=== PATIENT | female | born 1960 | race Two or more races ===

== ENCOUNTER 2016-09-25 07:41 | Emergency (ER) | payer BC ==
[~2016-09-25] VITALS: Ht 160 cm; Wt 59.0 kg
[2016-09-25 08:55] LABS: KETONES,URINE NEGATIVE (NEGATIVE); LEUKOCYTE ESTERASE ,URINE NEGATIVE (NEGATIVE); PH,URINE 5.5 (5.0-8.0)
[2016-09-25 09:04] LABS: ADD UA MICROSCOPIC YES
[2016-09-25 09:07] LABS: ADD URINE CULTURE NO; WBC,URINE 0-2 /HPF (0-3)
[2016-09-25 10:01] VITALS: BP 125/68
== END 2016-09-25 10:02 | disposition home or self-care (01) ==
LOC: ER 07:43
DX: R10.30 Lower abdominal pain, unspecified (principal); G89.29 Other chronic pain; M54.9 Dorsalgia, unspecified
CPT/HCPCS: 81001; 99283; A4606; Z7610; 81000-TC

== ENCOUNTER 2017-03-06 21:16 | Emergency (ER) | payer BC ==
[~2017-03-06] VITALS: Ht 165.1 cm; Wt 63.5 kg
[2017-03-06 21:20] VITALS: BP 147/65
== END 2017-03-06 21:37 | disposition home or self-care (01) ==
LOC: ER 21:21
DX: M79.642 Pain in left hand (principal)
CPT/HCPCS: 99282; A4606; Z7610

== ENCOUNTER 2017-08-28 07:13 | Emergency (ER) | payer BC ==
[~2017-08-28] VITALS: Ht 160 cm; Wt 63.5 kg
--- NOTE | 2017-08-28 07:20 | NUR ---
Patient to ed c/o epigastric pain on/off, 02/18 at this time-- x 1 week. Patient denies nausea and vomitting. Afebrile. vss
--- NOTE | 2017-08-28 07:34 | NUR ---
Dr. Boyer at bedside.
[2017-08-28] MEDS ORDERED: FAMOTIDINE (20 MG) 20 MG TABLET ONE (07:43)
[2017-08-28] MEDS ORDERED: MAG HYDROX/AL HYDROX/SIMETH 30 ML UDC ONE (07:43)
[2017-08-28] MEDS ORDERED: MAG HYDROX/AL HYDROX/SIMETH 30 ML UDC PO ONE (08:00)
[2017-08-28] MEDS ORDERED: FAMOTIDINE (20 MG) 20 MG TABLET PO ONE (08:00)
[2017-08-28 08:11] LABS: BASOPHILS # (AUTO) 0.1 /CMM (0.0-0.2); BASOPHILS % (AUTO) 1.1 % (0.0-2.0); EOSINOPHILS # (AUTO) 0.1 /CMM (0.0-0.7); EOSINOPHILS % (AUTO) 1.1 % (0.0-6.0); HEMATOCRIT 39 % (33-45); HEMOGLOBIN 13.5 g/dL (11.5-14.8); LYMPHOCYTES # (AUTO) 1.3 /CMM (0.8-4.8); LYMPHOCYTES % (AUTO) 27.1 % (20.0-44.0); MEAN CORPUSCULAR HEMOGLOBIN 29 PG (26.0-33.0); MEAN CORPUSCULAR HGB CONC 34 g/dl (31.0-36.0); MEAN CORPUSCULAR VOLUME 85 fL (82-100); MONOCYTES # (AUTO) 0.2 /CMM (0.1-1.30); MONOCYTES % (AUTO) 3.8 % (2.0-12.0); NEUTROPHILS # (AUTO) 3.3 /CMM (1.8-8.9); NEUTROPHILS % (AUTO) 66.9 % (43.0-81.0); PLATELET COUNT (AUTO) 272 /CMM (150-450); RDW COEFFICIENT OF VARIATION 13.4 (11.5-15.0); RED BLOOD CELL COUNT(AUTO) 4.63 MIL/uL (4.0-5.2); WHITE BLOOD COUNT (AUTO) 4.9 K/uL (4.3-11.0)
--- NOTE | 2017-08-28 08:14 | NUR ---
[facility] AT [facility]
[2017-08-28 08:22] LABS: CALCIUM, SERUM 9.2 mg/dL (8.5-10.1); CARBON DIOXIDE 32 mmol/L (21-32); CHLORIDE 104 mmol/L (98-107); CREATININE 0.7 mg/dL (0.6-1.3); GLUCOSE 130 mg/dL (74-106); POTASSIUM 4.1 mmol/L (3.5-5.1); SODIUM SERUM 144 mmol/L (136-145); UREA NITROGEN, BLOOD 10 mg/dL (7-18)
[2017-08-28 08:28] LABS: TROPONIN I < 0.017 ng/mL (0.00-0.056)
[2017-08-28 08:29] LABS: ALANINE AMINOTRANSFERASE 22 U/L (12-78); ALKALINE PHOSPHATASE 70 U/L (46-116); ASPARTATE AMINOTRANSFERASE 18 U/L (15-37); BILIRUBIN,DIRECT 0.1 mg/dL (0.0-0.2); BILIRUBIN,TOTAL 0.5 mg/dL (0.2-1.0); LIPASE 109 U/L (73-393)
[2017-08-28 08:45] VITALS: BP 120/80
--- NOTE | 2017-08-28 08:45 | NUR ---
Patient discharged to home in stable condition. Written and verbal after care instructions given. Patient verbalizes understanding of instruction.
== END 2017-08-28 08:46 | disposition home or self-care (01) ==
LOC: ER 07:15
DX: R10.13 Epigastric pain (principal); G89.29 Other chronic pain
CPT/HCPCS: 36415; 71045; 80048; 80076; 83690; 84484; 85025; 93005; 99285; A4606; Z7610

== ENCOUNTER 2018-02-02 15:14 | Emergency (ER) | payer BC, OTHER ==
[~2018-02-02] VITALS: Ht 160 cm; Wt 63.5 kg
[2018-02-02 15:14] VITALS: BP 126/75
== END 2018-02-02 17:36 | disposition home or self-care (01) ==
LOC: ER 15:17
DX: J40 Bronchitis, not specified as acute or chronic (principal); M54.6 Pain in thoracic spine; G89.29 Other chronic pain
CPT/HCPCS: 71046; 99284; A4606; Z7610

== ENCOUNTER 2018-05-23 13:22 | Emergency (ER) | payer BC ==
[~2018-05-23] VITALS: Ht 160 cm; Wt 63.5 kg
[2018-05-23 13:22] VITALS: BP 123/82
--- NOTE | 2018-05-23 15:42 | NUR ---
CALLED TO ROOM IN,NO ANSWER
--- NOTE | 2018-05-23 19:22 | NUR ---
CALLED PT NAME IN WR X 3. NO ONE RESPONSED. PER ADMITTING PT LEFT.
== END 2018-05-23 19:23 | disposition left against medical advice (07) ==
LOC: ER 13:24
DX: Z53.21 Procedure and treatment not carried out due to patient leaving prior to being seen by health care provider (principal)
CPT/HCPCS: A4606; Z7610

== ENCOUNTER 2018-05-24 09:54 | Emergency (ER) | payer BC ==
[~2018-05-24] VITALS: Ht 160 cm; Wt 63.5 kg
[2018-05-24 09:54] VITALS: BP 126/76
== END 2018-05-24 10:22 | disposition home or self-care (01) ==
LOC: ER 09:59
DX: H61.22 Impacted cerumen, left ear (principal); G89.29 Other chronic pain; M54.9 Dorsalgia, unspecified; Z78.0 Asymptomatic menopausal state
CPT/HCPCS: A4606; Z7610

== ENCOUNTER 2018-09-21 10:33 | Emergency (ER) | payer BC ==
[~2018-09-21] VITALS: Ht 160 cm; Wt 64.9 kg
[2018-09-21 10:40] VITALS: BP 118/82
[2018-09-21] MEDS ORDERED: IBUPROFEN 400 MG TABLET ONE (10:52)
[2018-09-21] MEDS ORDERED: IBUPROFEN 400 MG TABLET PO ONE (11:00)
== END 2018-09-21 10:59 | disposition home or self-care (01) ==
LOC: ER 10:33
DX: S30.0XXA Contusion of lower back and pelvis, initial encounter (principal); M76.01 Gluteal tendinitis, right hip; F41.9 Anxiety disorder, unspecified; G89.29 Other chronic pain; X58.XXXA Exposure to other specified factors, initial encounter; Y93.89 Activity, other specified; Y92.89 Other specified places as the place of occurrence of the external cause; Y99.8 Other external cause status
CPT/HCPCS: 99282; A4606

== ENCOUNTER 2018-11-27 17:05 | Emergency (ER) | payer BC ==
[~2018-11-27] VITALS: Ht 160 cm; Wt 65.8 kg
[2018-11-27 17:15] VITALS: BP 133/76
[2018-11-27 18:16] LABS: APPEARANCE,URINE Clear (CLEAR); BILIRUBIN,URINE Negative (NEGATIVE); BLOOD, URINE Trace-intact Ery/uL (NEGATIVE); COLOR,URINE Yellow (YELLOW); KETONES,URINE Negative (NEGATIVE); LEUKOCYTE ESTERASE ,URINE Negative (NEGATIVE); NITRITE, URINE Negative (NEGATIVE); PH,URINE 6.5 (5.0-8.0); PROTEIN,URINE Negative (NEGATIVE); UGLUCOSE Negative (NEGATIVE); UROBILINOGEN,URINE 0.2 EU/dL (0.2)
[2018-11-27 18:24] LABS: BACTERIA,URINE Rare /HPF (None Seen); RBC,URINE 0-2 /HPF (0-2); SQUAMOUS EPITHELIAL CELL,UR Few /HPF (None Seen); WBC,URINE NONE SEEN /HPF (0-3)
== END 2018-11-27 19:16 | disposition home or self-care (01) ==
LOC: ER 17:07
DX: M54.5 Low back pain (principal); R10.30 Lower abdominal pain, unspecified; M62.838 Other muscle spasm; G89.29 Other chronic pain; M54.9 Dorsalgia, unspecified; F10.10 Alcohol abuse, uncomplicated; Y90.9 Presence of alcohol in blood, level not specified; Z87.442 Personal history of urinary calculi
CPT/HCPCS: 81000-TC

== ENCOUNTER 2019-04-20 16:28 | Emergency (ER) | payer BC ==
[~2019-04-20] VITALS: Ht 160 cm; Wt 64.9 kg
[2019-04-20 16:49] VITALS: BP 131/84
== END 2019-04-20 17:47 | disposition home or self-care (01) ==
LOC: ER 16:31
DX: B35.4 Tinea corporis (principal); G89.29 Other chronic pain

== ENCOUNTER 2019-05-19 11:06 | Emergency (ER) | payer BC ==
[~2019-05-19] VITALS: Ht 165.1 cm; Wt 63.5 kg
[2019-05-19 12:18] LABS: BILIRUBIN,URINE Negative (NEGATIVE); BLOOD, URINE Trace-lysed Ery/uL (NEGATIVE); COLOR,URINE Yellow (YELLOW); KETONES,URINE Negative (NEGATIVE); LEUKOCYTE ESTERASE ,URINE Negative (NEGATIVE); NITRITE, URINE Negative (NEGATIVE); PROTEIN,URINE Negative (NEGATIVE); UGLUCOSE Negative (NEGATIVE); UROBILINOGEN,URINE 0.2 EU/dL (0.2)
[2019-05-19 12:21] LABS: APPEARANCE,URINE SLIGHTLY HAZY (CLEAR)
[2019-05-19] MEDS ORDERED: ACETAMINOPHEN ES 500 MG TABLET PO ONE (12:30)
--- NOTE | 2019-05-19 12:35 | NUR ---
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 CALLED ER/ [facility] AND INFORMED THEM ABOUT THE REASON FOR DELAY
[2019-05-19] MEDS ORDERED: ACETAMINOPHEN ES 500 MG TABLET ONE (12:38)
[2019-05-19 12:43] LABS: BACTERIA,URINE None seen /HPF (None Seen); SQUAMOUS EPITHELIAL CELL,UR Few /HPF (None Seen); WBC,URINE 0-3 /HPF (0-3)
[2019-05-19 12:46] LABS: BASOPHILS % (AUTO) 0.7 % (0.0-2.0); EOSINOPHILS % (AUTO) 0.8 % (0.0-6.0); HEMATOCRIT 41 % (33-45); LYMPHOCYTES # (AUTO) 1.2 /CMM (0.8-4.8); LYMPHOCYTES % (AUTO) 22.6 % (20.0-44.0); MEAN CORPUSCULAR HGB CONC 34 g/dl (31.0-36.0); MEAN CORPUSCULAR VOLUME 86 fL (82-100); MONOCYTES # (AUTO) 0.2 /CMM (0.1-1.30); MONOCYTES % (AUTO) 4.6 % (2.0-12.0); NEUTROPHILS # (AUTO) 3.7 /CMM (1.8-8.9); NEUTROPHILS % (AUTO) 71.3 % (43.0-81.0); PLATELET COUNT (AUTO) 281 /CMM (150-450); RED BLOOD CELL COUNT(AUTO) 4.78 MIL/uL (4.0-5.2); WHITE BLOOD COUNT (AUTO) 5.2 K/uL (4.3-11.0)
[2019-05-19 12:53] LABS: CALCIUM, SERUM 9.2 mg/dL (8.5-10.1); CREATININE 0.6 mg/dL (0.6-1.3)
[2019-05-19 13:08] LABS: ALBUMIN 4.1 g/dL (3.4-5.0); BILIRUBIN,DIRECT 0.1 mg/dL (0.0-0.2); BILIRUBIN,TOTAL 0.4 mg/dL (0.2-1.0); TOTAL PROTEIN, SERUM 8.1 g/dL (6.4-8.2)
[2019-05-19 13:53] VITALS: BP 134/67
--- NOTE | 2019-05-19 13:53 | NUR ---
Patient discharged to home in stable condition. Written and verbal after care instructions given. Patient verbalizes understanding of instruction.
== END 2019-05-19 13:53 | disposition home or self-care (01) ==
LOC: ER 11:10
DX: K59.00 Constipation, unspecified (principal); G89.29 Other chronic pain; M54.9 Dorsalgia, unspecified; F10.10 Alcohol abuse, uncomplicated; Y90.9 Presence of alcohol in blood, level not specified
CPT/HCPCS: 36415; 74018; 76856-TC; 80048-TC; 80076-TC; 81000-TC; 85025-TC

== ENCOUNTER 2021-01-18 18:41 | Emergency (ER) | payer BC ==
[~2021-01-18] VITALS: Ht 160 cm; Wt 64.4 kg
[2021-01-18] MEDS ORDERED: MECLIZINE HCL 25 MG TABLET ONE (19:08)
[2021-01-18] MEDS ORDERED: ONDANSETRON HCL/PF 4 MG/2 ML VIAL ONE (19:08)
[2021-01-18] MEDS: MECLIZINE HCL 12.5 MG TABLET PO ONE (19:17)
[2021-01-18] MEDS: ONDANSETRON HCL/PF - ER 4 MG/2 ML VIAL IV ONE (19:17)
--- NOTE | 2021-01-18 19:19 | NUR ---
BIBS W/ FROM HOME TO ER BED 6. AAOX4. NOT IN RESP DISTRESS. AMBULATORY. CAME IN FOR DIZZYNESS, [place], PALPITATION AND CHEST TIGHTNESS. PER PT, SHE STARTED FEELING DIZZY AROUND 1500. PT THEN STARTED TO FEEL NAUSEOUS, PALPITATION AND CHEST TIGHTNESS. WAS AT THE BEDSIDE FOR EVAL. ORDERSRECEIVED, NOTED AND CARRIED OUT. IV LINE ESTABLISHED ON L AC 20G, BLOOD DRAWN AND GIVEN TO PHLEB.
[2021-01-18 19:22] LABS: BASOPHILS % (AUTO) 0.6 % (0.0-2.0); EOSINOPHILS % (AUTO) 0.4 % (0.0-6.0); HEMATOCRIT 40 % (33-45); HEMOGLOBIN 13.6 g/dL (11.5-14.8); LYMPHOCYTES # (AUTO) 1.5 /CMM (0.8-4.8); LYMPHOCYTES % (AUTO) 18.4 % (20.0-44.0); MEAN CORPUSCULAR HGB CONC 34 g/dl (31.0-36.0); MEAN CORPUSCULAR VOLUME 86 fL (82-100); MONOCYTES # (AUTO) 0.2 /CMM (0.1-1.30); MONOCYTES % (AUTO) 2.9 % (2.0-12.0); NEUTROPHILS # (AUTO) 6.3 /CMM (1.8-8.9); NEUTROPHILS % (AUTO) 77.7 % (43.0-81.0); PLATELET COUNT (AUTO) 303 /CMM (150-450); RED BLOOD CELL COUNT(AUTO) 4.65 MIL/uL (4.0-5.2); WHITE BLOOD COUNT (AUTO) 8.1 K/uL (4.3-11.0)
[2021-01-18 19:23] LABS: CALCIUM, SERUM 9.7 mg/dL (8.5-10.1); CARBON DIOXIDE 29 mmol/L (21-32); CHLORIDE 103 mmol/L (98-107); CREATININE 0.8 mg/dL (0.6-1.3); GLUCOSE 104 mg/dL (74-106); POTASSIUM 4.1 mmol/L (3.5-5.1); SODIUM SERUM 140 mmol/L (136-145); UREA NITROGEN, BLOOD 11 mg/dL (7-18)
[2021-01-18] MEDS ORDERED: MECL-159 PO (20:52)
[2021-01-18] MEDS ORDERED: ONDA4TAB5 PO (20:52)
--- NOTE | 2021-01-18 21:33 | NUR ---
Patient discharged to home in stable condition. Written and verbal after care instructions given. Patient verbalizes understanding of instruction.IV removed. Catheter intact and site benign. Pressure and 4x4 applied to site. No bleeding noted. Pt ambulatory with a steady gait
[2021-01-18 21:36] VITALS: BP 124/70
== END 2021-01-18 21:37 | disposition home or self-care (01) ==
LOC: ER 18:44
DX: R42 Dizziness and giddiness (principal); R00.2 Palpitations; M54.5 Low back pain; G89.29 Other chronic pain; Z79.899 Other long term (current) drug therapy
CPT/HCPCS: 36415; 80048; 84484; 85025; 93005 ×2; 96374; 99284; J2405; J8597

== ENCOUNTER 2021-03-21 07:43 | Emergency (ER) | payer BC ==
[~2021-03-21] VITALS: Ht 160 cm; Wt 63.5 kg
[~2021-03-21 07:43] MED LIST: MECL-159 PO; ONDA4TAB5 PO
--- NOTE | 2021-03-21 08:05 | NUR ---
TO ER BED 1, C/O DIZZINESS X 2 DAYS WORST TODAY. ALSO C/O NAUSEA, VOMITING AND DIARRHEA, CHANGED TO GOWN, ATTACHED TO MONITOR, SALINE LOCK ESTABLISHED, BLOOD DRAWN.
[2021-03-21] MEDS ORDERED: MECLIZINE HCL 25 MG TABLET ONE (08:14)
[2021-03-21] MEDS ORDERED: ONDANSETRON HCL/PF 4 MG/2 ML VIAL ONE (08:14)
[2021-03-21] MEDS ORDERED: IV NS 0.9% 1,000 ML BAG IV ONE (08:30)
[2021-03-21] MEDS ORDERED: ONDANSETRON HCL/PF 4 MG/2 ML VIAL IVP ONE (08:30)
[2021-03-21] MEDS ORDERED: MECLIZINE HCL 12.5 MG TABLET PO ONE (08:30)
[2021-03-21 08:43] LABS: BASOPHILS % (AUTO) 0.7 % (0.0-2.0); EOSINOPHILS % (AUTO) 1.3 % (0.0-6.0); HEMATOCRIT 38 % (33-45); HEMOGLOBIN 12.7 g/dL (11.5-14.8); LYMPHOCYTES # (AUTO) 1.5 K/uL (0.8-4.8); LYMPHOCYTES % (AUTO) 26.1 % (20.0-44.0); MEAN CORPUSCULAR HGB CONC 34 g/dl (31.0-36.0); MEAN CORPUSCULAR VOLUME 86 fL (82-100); MONOCYTES # (AUTO) 0.3 K/uL (0.1-1.30); MONOCYTES % (AUTO) 5.5 % (2.0-12.0); NEUTROPHILS # (AUTO) 3.7 K/uL (1.8-8.9); NEUTROPHILS % (AUTO) 66.4 % (43.0-81.0); PLATELET COUNT (AUTO) 267 K/uL (150-450); RED BLOOD CELL COUNT(AUTO) 4.38 MIL/uL (4.0-5.2); WHITE BLOOD COUNT (AUTO) 5.6 K/uL (4.3-11.0)
[2021-03-21 08:58] LABS: ALANINE AMINOTRANSFERASE 17 U/L (12-78); ALBUMIN 3.9 g/dL (3.4-5.0); ALKALINE PHOSPHATASE 57 U/L (46-116); ASPARTATE AMINOTRANSFERASE 11 U/L (15-37); BILIRUBIN,DIRECT 0.1 mg/dL (0.0-0.2); BILIRUBIN,TOTAL 0.4 mg/dL (0.2-1.0); CARBON DIOXIDE 30 mmol/L (21-32); CHLORIDE 104 mmol/L (98-107); CREATININE 0.7 mg/dL (0.6-1.3); GLUCOSE 98 mg/dL (74-106); POTASSIUM 3.6 mmol/L (3.5-5.1); SODIUM SERUM 143 mmol/L (136-145); TOTAL PROTEIN, SERUM 7.5 g/dL (6.4-8.2); UREA NITROGEN, BLOOD 17 mg/dL (7-18)
--- NOTE | 2021-03-21 09:20 | NUR ---
URINE COLLECTED AND SENT TO LAB
[2021-03-21] MEDS ORDERED: MECL-159 PO (09:27)
[2021-03-21] MEDS ORDERED: ONDA4TAB5 PO (09:27)
[2021-03-21 09:37] LABS: BILIRUBIN,URINE NEGATIVE (NEGATIVE); COLOR,URINE YELLOW (YELLOW); LEUKOCYTE ESTERASE ,URINE TRACE (NEGATIVE); NITRITE, URINE NEGATIVE (NEGATIVE); PROTEIN,URINE NEGATIVE (NEGATIVE); UGLUCOSE NEGATIVE (NEGATIVE); UROBILINOGEN,URINE 0.2 EU/dL (0.2)
[2021-03-21 10:17] LABS: BACTERIA,URINE None seen /HPF (None Seen); SQUAMOUS EPITHELIAL CELL,UR 0-2 /HPF (None Seen); WBC,URINE 0-2 /HPF (0-3)
[2021-03-21 10:23] VITALS: BP 109/69
--- NOTE | 2021-03-21 10:34 | NUR ---
IV removed. Catheter intact and site benign. Pressure and 4x4 applied to site. No bleeding noted.Patient discharged to home in stable condition. Written and verbal after care instructions given. Patient verbalizes understanding of instruction.
== END 2021-03-21 10:35 | disposition home or self-care (01) ==
LOC: ER 07:46
DX: R42 Dizziness and giddiness (principal); R11.2 Nausea with vomiting, unspecified; G89.29 Other chronic pain
CPT/HCPCS: 36415; 70450; 71045; 80048; 80076; 81001; 84484; 85025; 93005; 96361; 96374; 99285; J2405; J7030; J8597

== ENCOUNTER 2021-11-20 17:53 | Emergency (ER) | payer BC ==
[~2021-11-20] VITALS: Ht 160 cm; Wt 65.8 kg
--- NOTE | 2021-11-20 18:24 | NUR ---
TO ER BED 16. BIBS C/O DIFFUSE ABD PAIN X 3 WKS PER PT -N/V/D. DR ZAMORA AT BEDSIDE FOR EVAL.
--- NOTE | 2021-11-20 18:35 | NUR ---
IV ESTABLISHED R AC 20G. LABS DRAWN AND COLLECTED. COVERTED TO SALINE LOCK
[2021-11-20] MEDS ORDERED: DICYCLOMINE HCL 10 MG CAPSULE PO ONE (18:51)
[2021-11-20] MEDS: DICYCLOMINE HCL 10 MG CAPSULE PO ONE (18:56)
[2021-11-20 19:12] LABS: CALCIUM, SERUM 9.2 mg/dL (8.5-10.1); CREATININE 0.8 mg/dL (0.6-1.3)
[2021-11-20 19:18] LABS: ALBUMIN 3.9 g/dL (3.4-5.0); BILIRUBIN,DIRECT 0.1 mg/dL (0.0-0.2); BILIRUBIN,TOTAL 0.3 mg/dL (0.2-1.0); TOTAL PROTEIN, SERUM 7.9 g/dL (6.4-8.2)
[2021-11-20] MEDS ORDERED: DICY20TA11 PO (19:31)
[2021-11-20] MEDS ORDERED: ONDA4TAB11 PO (19:31)
[2021-11-20 20:05] LABS: BASOPHILS % (AUTO) 0.4 % (0.0-2.0); EOSINOPHILS % (AUTO) 0.7 % (0.0-6.0); HEMATOCRIT 40 % (33-45); HEMOGLOBIN 13.5 g/dL (11.5-14.8); LYMPHOCYTES # (AUTO) 1.3 K/uL (0.8-4.8); LYMPHOCYTES % (AUTO) 17.6 % (20.0-44.0); MEAN CORPUSCULAR HGB CONC 34 g/dl (31.0-36.0); MEAN CORPUSCULAR VOLUME 85 fL (82-100); MONOCYTES # (AUTO) 0.3 K/uL (0.1-1.30); NEUTROPHILS # (AUTO) 5.8 K/uL (1.8-8.9); NEUTROPHILS % (AUTO) 77.3 % (43.0-81.0); PLATELET COUNT (AUTO) 278 K/uL (150-450); RED BLOOD CELL COUNT(AUTO) 4.75 MIL/uL (4.0-5.2); WHITE BLOOD COUNT (AUTO) 7.5 K/uL (4.3-11.0)
[2021-11-20 21:31] VITALS: BP 135/88
== END 2021-11-20 21:31 | disposition home or self-care (01) ==
LOC: ER 17:57
DX: R10.84 Generalized abdominal pain (principal); G89.29 Other chronic pain; Z78.0 Asymptomatic menopausal state; Z79.899 Other long term (current) drug therapy
CPT/HCPCS: 36415; 80048-TC; 80076-TC; 83690-TC; 85025-TC

== ENCOUNTER 2021-12-11 10:52 | Emergency (ER) | payer BC ==
[~2021-12-11] VITALS: Ht 165.1 cm; Wt 63.5 kg
[~2021-12-11 10:52] MED LIST changes: +DICY20TA11 PO; +ONDA4TAB11 PO
--- NOTE | 2021-12-11 11:04 | NUR ---
URINE SAMPLE OBTAINED AND SENT TO LAB
--- NOTE | 2021-12-11 11:05 | NUR ---
BIB DAUGHTER C/O ON AND OFF LOWER ABDOMINAL AND LOWER BACK PAIN X 1 WEEK. ADMITS DIZZINESS AND NAUSEA W/O VOMITING. HX OF KIDNEY STONES. WAS SEEN HERE 1 WEEK AGO [address] HAD [address] 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 AAOX4, BREATHING EVEN AND UNLABORED, PULSES 2+ BILATERALLY, SKIN WARM TO TOUCH. ABLE TO AMBULATE. CHANGED TO GOWN. ON MONITOR. POX 100% ON RA.
--- NOTE | 2021-12-11 11:06 | NUR ---
WARM BLANKET GIVEN, COMFORT MEASURES IN PLACE
--- NOTE | 2021-12-11 11:14 | NUR ---
PT AMBUALTED TO RESTROOM AND RETURNED TO BED IN STABLE CONDITION.
[2021-12-11] MEDS ORDERED: MORPHINE SULFATE INJ 2 MG/ML DISP.SYRIN IV ONE (11:30)
[2021-12-11] MEDS ORDERED: IV NS 0.9% 1,000 ML BAG IV ONE (11:30)
[2021-12-11] MEDS ORDERED: ONDANSETRON HCL/PF 4 MG/2 ML VIAL IVP ONE (11:30)
--- NOTE | 2021-12-11 11:40 | NUR ---
BLOOD SAMPLE OBTAINED AND SENT TO LAB
--- NOTE | 2021-12-11 11:45 | NUR ---
PT TAKEN TO CT VIA [facility]
[2021-12-11 11:50] LABS: BASOPHILS % (AUTO) 0.5 % (0.0-2.0); EOSINOPHILS % (AUTO) 0.4 % (0.0-6.0); HEMATOCRIT 40 % (33-45); HEMOGLOBIN 13.6 g/dL (11.5-14.8); LYMPHOCYTES # (AUTO) 0.9 K/uL (0.8-4.8); LYMPHOCYTES % (AUTO) 14.8 % (20.0-44.0); MEAN CORPUSCULAR HGB CONC 34 g/dl (31.0-36.0); MEAN CORPUSCULAR VOLUME 84 fL (82-100); MONOCYTES # (AUTO) 0.2 K/uL (0.1-1.30); MONOCYTES % (AUTO) 3.2 % (2.0-12.0); NEUTROPHILS # (AUTO) 5.1 K/uL (1.8-8.9); NEUTROPHILS % (AUTO) 81.1 % (43.0-81.0); PLATELET COUNT (AUTO) 284 K/uL (150-450); RED BLOOD CELL COUNT(AUTO) 4.81 MIL/uL (4.0-5.2); WHITE BLOOD COUNT (AUTO) 6.3 K/uL (4.3-11.0)
[2021-12-11 11:59] LABS: BILIRUBIN,URINE NEGATIVE (NEGATIVE); LEUKOCYTE ESTERASE ,URINE NEGATIVE (NEGATIVE); NITRITE, URINE NEGATIVE (NEGATIVE); PROTEIN,URINE NEGATIVE (NEGATIVE); UGLUCOSE NEGATIVE (NEGATIVE); UROBILINOGEN,URINE 0.2 EU/dL (0.2)
[2021-12-11] MEDS ORDERED: ONDANSETRON HCL/PF 4 MG/2 ML VIAL ONE (12:02)
[2021-12-11] MEDS ORDERED: MORPHINE SULFATE INJ 4 MG/ML DISP.SYRIN ONE (12:02)
[2021-12-11 12:07] LABS: ALBUMIN 4.1 g/dL (3.4-5.0); BILIRUBIN,DIRECT 0.1 mg/dL (0.0-0.2); BILIRUBIN,TOTAL 0.6 mg/dL (0.2-1.0); CALCIUM, SERUM 9.6 mg/dL (8.5-10.1); CREATININE 0.7 mg/dL (0.6-1.3); POTASSIUM 3.7 mmol/L (3.5-5.1); TOTAL PROTEIN, SERUM 7.8 g/dL (6.4-8.2)
--- NOTE | 2021-12-11 12:20 | NUR ---
pt sitting in bed, comfort measures in place, needs met
[2021-12-11 12:49] LABS: COLOR,URINE LIGHT YELLOW (YELLOW)
--- NOTE | 2021-12-11 13:23 | NUR ---
IV removed. Catheter intact and site benign. Pressure and 4x4 applied to site. No bleeding noted.
--- NOTE | 2021-12-11 13:23 | NUR ---
Patient discharged to home in stable condition. Written and verbal after care instructions given. Patient verbalizes understanding of instruction.
[2021-12-11 13:24] VITALS: BP 122/67
[2021-12-11 15:11] LABS: BACTERIA,URINE Rare /HPF (None Seen); CALCIUM CARBONATE CRYSTALS,UR None Seen /HPF (None Seen); CALCIUM PHOSPHATE CRYSTALS,UR None Seen /HPF (None Seen); RBC,URINE 0-2 /HPF (0-2); SQUAMOUS EPITHELIAL CELL,UR Rare /HPF (None Seen); TRICHOMONAS,URINE None Seen /HPF (None Seen); WBC,URINE 0-2 /HPF (0-3); YEAST,URINE None Seen /HPF (None Seen)
[2021-12-11 15:12] LABS: CALCIUM OXALATE CRYSTALS,UR None Seen /HPF (None Seen); COARSE GRANULAR CASTS,URINE None Seen /LPF (None Seen); CYSTINE CRYSTALS,URINE None Seen /HPF (None Seen); FATTY CASTS,URINE None Seen /LPF (None Seen); FINE GRANULAR CASTS,URINE None Seen /LPF (None Seen); HYALINE CASTS, URINE None Seen /LPF (None Seen); MUCUS,URINE None Seen /LPF (None Seen); OTHER CRYSTALS,URINE None Seen /HPF (None Seen); RED BLOOD CELL CASTS,URINE None Seen /LPF (None Seen); SPERM,URINE None Seen /HPF (None Seen); TRIPLE PHOSPHATE CRYSTAL,UR None Seen /HPF (None Seen); TYROSINE CRYSTAL,URINE None seen /HPF (None Seen); URIC ACID CRYSTALS,URINE None Seen /HPF (None Seen); URINE AMORPHOUS PHOSPHATES None Seen /HPF (None Seen); URINE AMORPHOUS URATE None Seen /HPF (None Seen); WAXY CASTS,URINE None Seen /LPF (None Seen)
== END 2021-12-11 13:24 | disposition home or self-care (01) ==
LOC: ER 10:52
DX: R10.84 Generalized abdominal pain (principal); G89.29 Other chronic pain; Z78.0 Asymptomatic menopausal state; Z79.899 Other long term (current) drug therapy
CPT/HCPCS: 36415; 74176; 80048; 80076; 81001; 83690; 85025; 96361; 96374; 96375; 99284; J2270; J2405; J7030

== ENCOUNTER 2022-10-06 10:45 | Emergency (ER) | payer BC ==
[~2022-10-06] VITALS: Ht 165.1 cm; Wt 2.4 kg
--- NOTE | 2022-10-06 11:26 | NUR ---
URINE SAMPLE OBTAINED
--- NOTE | 2022-10-06 11:30 | NUR ---
C/O LEFT FLANK PAIN AND DYSURIA X 1 WEEK. PT AMBULATED TO BED WITH STEADY GAIT. VSS. AWAITING MD ORDERS.
[2022-10-06 12:08] LABS: BASOPHILS % (AUTO) 0.4 % (0.0-2.0); EOSINOPHILS % (AUTO) 0.9 % (0.0-6.0); HEMATOCRIT 41 % (33-45); HEMOGLOBIN 13.6 g/dL (11.5-14.8); LYMPHOCYTES # (AUTO) 1.1 K/uL (0.8-4.8); LYMPHOCYTES % (AUTO) 22.9 % (20.0-44.0); MEAN CORPUSCULAR HGB CONC 33 g/dl (31.0-36.0); MEAN CORPUSCULAR VOLUME 84 fL (82-100); MONOCYTES # (AUTO) 0.2 K/uL (0.1-1.30); MONOCYTES % (AUTO) 3.7 % (2.0-12.0); NEUTROPHILS # (AUTO) 3.3 K/uL (1.8-8.9); NEUTROPHILS % (AUTO) 72.1 % (43.0-81.0); PLATELET COUNT (AUTO) 288 K/uL (150-450); RED BLOOD CELL COUNT(AUTO) 4.88 MIL/uL (4.0-5.2); WHITE BLOOD COUNT (AUTO) 4.6 K/uL (4.3-11.0)
[2022-10-06 12:20] LABS: BILIRUBIN,URINE NEGATIVE (NEGATIVE); LEUKOCYTE ESTERASE ,URINE NEGATIVE (NEGATIVE); NITRITE, URINE NEGATIVE (NEGATIVE); PROTEIN,URINE NEGATIVE (NEGATIVE); UGLUCOSE NEGATIVE (NEGATIVE); UROBILINOGEN,URINE 0.2 EU/dL (0.2)
[2022-10-06 12:21] LABS: COLOR,URINE STRAW (YELLOW)
[2022-10-06] MEDS ORDERED: KETOROLAC TROMETHAMINE INJ 30 MG/ML VIAL IV ONE (12:30)
[2022-10-06] MEDS ORDERED: FENTANYL PF 100MCG/2ML AMPUL IV ONE (12:30)
[2022-10-06] MEDS ORDERED: ACETAMINOPHEN ES 500 MG TABLET PO ONE (12:30)
[2022-10-06] MEDS ORDERED: ONDANSETRON HCL/PF 4 MG/2 ML VIAL IVP ONE (12:30)
[2022-10-06] MEDS ORDERED: IV NS 0.9% 1,000 ML BAG IV ONE (12:30)
[2022-10-06] MEDS ORDERED: KETOROLAC TROMETHAMINE 15 MG/ML VIAL ONE (12:53)
[2022-10-06] MEDS ORDERED: ONDANSETRON HCL/PF 4 MG/2 ML VIAL ONE (12:54)
[2022-10-06] MEDS ORDERED: ACETAMINOPHEN ES 500 MG TABLET ONE (12:54)
[2022-10-06 12:59] LABS: ALBUMIN 4.2 g/dL (3.4-5.0); BILIRUBIN,DIRECT 0.6 mg/dL (0.0-0.2); BILIRUBIN,TOTAL 0.4 mg/dL (0.2-1.0); CALCIUM, SERUM 9.4 mg/dL (8.5-10.1); CREATININE 0.7 mg/dL (0.6-1.3); POTASSIUM 3.9 mmol/L (3.5-5.1)
[2022-10-06] MEDS ORDERED: FENTANYL PF 100MCG/2ML AMPUL ONE (13:02)
[2022-10-06 13:11] LABS: BACTERIA,URINE None seen /HPF (None Seen); RBC,URINE NONE SEEN /HPF (0-2); SQUAMOUS EPITHELIAL CELL,UR RARE /HPF (None Seen); WBC,URINE NONE SEEN /HPF (0-3)
[2022-10-06 15:00] VITALS: BP 129/77
[2022-10-06] MEDS ORDERED: IBUP-1955 PO (15:00)
[2022-10-06] MEDS ORDERED: CYCL5TAB PO (15:00)
== END 2022-10-06 15:22 | disposition home or self-care (01) ==
LOC: ER 11:24
DX: R10.9 Unspecified abdominal pain (principal); M54.50 Low back pain, unspecified; G89.29 Other chronic pain; Z79.899 Other long term (current) drug therapy
CPT/HCPCS: 99285; 74176; 96374; 96375; 96361; 85025; 80048; 83690; 80076; 84703; 81001; 36415; J3010; J2405; J7030; J1885

== ENCOUNTER 2022-11-22 15:38 | Emergency (ER) | payer BC ==
[~2022-11-22] VITALS: Ht 160 cm; Wt 63.5 kg
[~2022-11-22 15:38] MED LIST changes: +CYCL5TAB PO; +IBUP-1955 PO
--- NOTE | 2022-11-22 15:45 | NUR ---
ON & OFF LEFT FACIAL NUMBNESS X 2 WEEKS
[2022-11-22 17:47] LABS: BASOPHILS % (AUTO) 0.6 % (0.0-2.0); EOSINOPHILS % (AUTO) 1.1 % (0.0-6.0); HEMATOCRIT 38 % (33-45); HEMOGLOBIN 12.8 g/dL (11.5-14.8); LYMPHOCYTES % (AUTO) 13.2 % (20.0-44.0); MEAN CORPUSCULAR HGB CONC 33 g/dl (31.0-36.0); MEAN CORPUSCULAR VOLUME 85 fL (82-100); MONOCYTES # (AUTO) 0.4 K/uL (0.1-1.30); MONOCYTES % (AUTO) 4.9 % (2.0-12.0); NEUTROPHILS # (AUTO) 5.9 K/uL (1.8-8.9); NEUTROPHILS % (AUTO) 80.2 % (43.0-81.0); PLATELET COUNT (AUTO) 264 K/uL (150-450); WHITE BLOOD COUNT (AUTO) 7.4 K/uL (4.3-11.0)
[2022-11-22 17:51] LABS: CALCIUM, SERUM 9.4 mg/dL (8.5-10.1); CARBON DIOXIDE 28 mmol/L (21-32); CHLORIDE 105 mmol/L (98-107); CREATININE 0.7 mg/dL (0.6-1.3); GLUCOSE 100 mg/dL (74-106); POTASSIUM 3.6 mmol/L (3.5-5.1); SODIUM SERUM 141 mmol/L (136-145); UREA NITROGEN, BLOOD 11 mg/dL (7-18)
--- NOTE | 2022-11-22 19:40 | NUR ---
Patient discharged to home in stable condition. Written and verbal after care instructions given. Patient verbalizes understanding of instruction.
[2022-11-22 19:41] VITALS: BP 145/74
== END 2022-11-22 19:41 | disposition home or self-care (01) ==
LOC: ER 15:48
DX: R20.2 Paresthesia of skin (principal); G89.29 Other chronic pain; Z79.899 Other long term (current) drug therapy
CPT/HCPCS: 36415; 70450-TC; 71045-TC; 80048-TC; 84484-TC; 85025-TC; 85730-TC

== ENCOUNTER 2023-06-04 14:36 | Emergency (ER) | payer BC ==
[~2023-06-04] VITALS: Ht 165.1 cm; Wt 63.5 kg
[2023-06-04 15:32] LABS: BASOPHILS % (AUTO) 0.7 % (0.0-2.0); EOSINOPHILS % (AUTO) 0.4 % (0.0-6.0); HEMATOCRIT 39 % (33-45); LYMPHOCYTES # (AUTO) 1.4 K/uL (0.8-4.8); LYMPHOCYTES % (AUTO) 19.4 % (20.0-44.0); MEAN CORPUSCULAR HEMOGLOBIN 29 PG (26.0-33.0); MEAN CORPUSCULAR HGB CONC 33 g/dl (31.0-36.0); MEAN CORPUSCULAR VOLUME 85 fL (82-100); MONOCYTES # (AUTO) 0.3 K/uL (0.1-1.30); MONOCYTES % (AUTO) 3.8 % (2.0-12.0); NEUTROPHILS # (AUTO) 5.5 K/uL (1.8-8.9); NEUTROPHILS % (AUTO) 75.7 % (43.0-81.0); PLATELET COUNT (AUTO) 271 K/uL (150-450); RED BLOOD CELL COUNT(AUTO) 4.56 MIL/uL (4.0-5.2); RED CELL DISTRIBUTION WIDTH 13.8 % (11.5-15.0); WHITE BLOOD COUNT (AUTO) 7.3 K/uL (4.3-11.0)
[2023-06-04 15:46] LABS: CALCIUM, SERUM 8.8 mg/dL (8.5-10.1); CARBON DIOXIDE 28 mmol/L (21-32); CHLORIDE 102 mmol/L (98-107); CREATININE 0.7 mg/dL (0.6-1.3); GLUCOSE 109 mg/dL (74-106); POTASSIUM 3.5 mmol/L (3.5-5.1); SODIUM SERUM 140 mmol/L (136-145); UREA NITROGEN, BLOOD 10 mg/dL (7-18)
[2023-06-04 19:32] VITALS: BP 116/65; TEMP 98; O2SAT 100
== END 2023-06-04 19:32 | disposition home or self-care (01) ==
LOC: ER 14:38
DX: R00.2 Palpitations (principal); G89.29 Other chronic pain
CPT/HCPCS: 36415; 71045-TC; 80048-TC; 84484-TC; 85025-TC

== ENCOUNTER 2024-04-28 22:39 | Emergency (ER) | payer BC ==
[~2024-04-28] VITALS: Ht 160 cm; Wt 62.2 kg
[2024-04-28] MEDS ORDERED: KETOROLAC TROMETHAMINE INJ 30 MG/ML VIAL ONE (23:40)
[2024-04-28] MEDS: IV NS 0.9% 1,000 ML BAG IV ONE (23:41)
[2024-04-28] MEDS: KETOROLAC TROMETHAMINE 15 MG/ML VIAL IV ONE (23:41)
[2024-04-28] MEDS ORDERED: IOHEXOL-300 100 ML VIAL IV ONE (23:52)
[2024-04-28] MEDS ORDERED: CT SWABBABLE VALVE TRANS SET 1 EA INFUS.SET MC ONE (23:52)
[2024-04-28] MEDS ORDERED: IV NS 0.9% 250 ML IV ONE (23:54)
[2024-04-29 00:01] LABS: BASOPHILS % (AUTO) 0.6 % (0.0-2.0); EOSINOPHILS # (AUTO) 0.1 K/uL (0.0-0.7); EOSINOPHILS % (AUTO) 1.1 % (0.0-6.0); HEMATOCRIT 40 % (33-45); HEMOGLOBIN 13.1 g/dL (11.5-14.8); LYMPHOCYTES # (AUTO) 2.1 K/uL (0.8-4.8); LYMPHOCYTES % (AUTO) 31.4 % (20.0-44.0); MEAN CORPUSCULAR HEMOGLOBIN 28 PG (26.0-33.0); MEAN CORPUSCULAR HGB CONC 33 g/dl (31.0-36.0); MEAN CORPUSCULAR VOLUME 85 fL (82-100); MONOCYTES # (AUTO) 0.3 K/uL (0.1-1.30); MONOCYTES % (AUTO) 4.7 % (2.0-12.0); NEUTROPHILS # (AUTO) 4.2 K/uL (1.8-8.9); NEUTROPHILS % (AUTO) 62.2 % (43.0-81.0); PLATELET COUNT (AUTO) 274 K/uL (150-450); RED BLOOD CELL COUNT(AUTO) 4.69 MIL/uL (4.0-5.2); WHITE BLOOD COUNT (AUTO) 6.8 K/uL (4.3-11.0)
[2024-04-29 00:22] LABS: CALCIUM, SERUM 9.1 mg/dL (8.5-10.1); CREATININE 0.7 mg/dL (0.6-1.3); POTASSIUM 3.8 mmol/L (3.5-5.1)
[2024-04-29 01:55] LABS: APPEARANCE,URINE CLEAR (CLEAR); BILIRUBIN,URINE NEGATIVE (NEGATIVE); BLOOD, URINE 1+ Ery/uL (NEGATIVE); COLOR,URINE YELLOW (YELLOW); KETONES,URINE NEGATIVE (NEGATIVE); LEUKOCYTE ESTERASE ,URINE 3+ (NEGATIVE); NITRITE, URINE NEGATIVE (NEGATIVE); PROTEIN,URINE NEGATIVE (NEGATIVE); UGLUCOSE NEGATIVE (NEGATIVE); UROBILINOGEN,URINE 0.2 EU/dL (0.2)
[2024-04-29 02:00] LABS: ADD URINE CULTURE YES; BACTERIA,URINE Few /HPF (None Seen); SQUAMOUS EPITHELIAL CELL,UR Rare /HPF (None Seen)
[2024-04-29] MEDS ORDERED: KETO10TA2 PO (02:10)
[2024-04-29] MEDS ORDERED: SULF1TAB48 PO (02:10)
[2024-04-29 02:21] VITALS: BP 128/78; TEMP 98.3; O2SAT 99
[2024-04-29] MEDS: MORPHINE SULFATE INJ 2 MG/ML DISP.SYRIN IV ONE (02:22)
== END 2024-04-29 02:22 | disposition home or self-care (01) ==
LOC: ER 22:41
DX: N39.0 Urinary tract infection, site not specified (principal); R10.32 Left lower quadrant pain; M54.59 Other low back pain; R11.0 Nausea; G89.29 Other chronic pain; M54.50 Low back pain, unspecified
CPT/HCPCS: 99285; 74176; 96374; 96361; 85025; 80048; 36415; 87086; 81001; J1885; J7030; J7050; Q9967

== ENCOUNTER 2025-01-07 23:32 | Emergency (ER) | payer BC ==
[~2025-01-07 23:32] MED LIST changes: +KETO10TA2 PO; +SULF1TAB48 PO
== END 2025-01-08 02:21 | disposition left against medical advice (07) ==
LOC: ER 23:41
DX: R11.0 Nausea (principal); R09.81 Nasal congestion; R68.83 Chills (without fever); Z53.21 Procedure and treatment not carried out due to patient leaving prior to being seen by health care provider